=== PATIENT | female | born 1965 | race Caucasian/White ===

== ENCOUNTER 2016-11-27 00:18 | Emergency (ER) | payer MEDICARE, MEDICAID ==
[2016-11-27] MEDS ORDERED: PROMETHAZINE HCL 25 MG/ML VIAL IVP ONE ×2 (00:33→00:34)
[2016-11-27] MEDS ORDERED: 0.9 % SODIUM CHLORIDE 1,000 ML BAG IV ONE ×2 (00:33→00:34)
[2016-11-27] MEDS ORDERED: HYDROMORPHONE HCL 1 MG/ML CPJ IVP ONE ×2 (00:33→00:34)
--- NOTE | 2016-11-27 00:38 | Emergency Department Record ---
History of Present Illness - General Chief Complaint: Headache Migraine Stated Complaint: VOMITING Source: Patient Mode of Arrival: Ambulatory Limitations: No limitations - History of Present Illness Initial Comments: 51 yo female presents with an abrupt onset frontal headache with nausea and vomiting. She was at rest with the headache started. The pain was 8/10 at the onset. She has a history of migraines but expressed this was different. She reports a normal day prior to that. She has a history of COPD, smoker, cardiac disease with 2 prior cardiac surgeries on Coumadin and Digoxin. No chest pain or shortness of breath. MD Complaint: Headache -: Hour(s) Onset Description: Sudden Location: Frontal Severity scale (1-10): 8 Quality: Sharp Consistency: Constant Improves With: Nothing Worsens With: None Associated Symptoms: Nausea, Vomiting Treatments Prior to Arrival: Prescription analgesic - Related Data Home Medications Medication Instructions Recorded Confirmed Last Taken Hydromorphone HCl [Dilaudid] 8 mg PO Q4H PRN 03/14/14 11/27/16 Unknown Ipratropium [place] 0.02 03/14/14 03/14/14 Unknown Levalbuterol HCl (1.25MG/3Ml) 1.25 mg IH 03/14/14 03/14/14 Unknown [Xopenex] Metoprolol 50mg 03/14/14 03/14/14 Unknown Rosuvastatin Calcium [Crestor] 10 mg PO DAILY 03/14/14 11/27/16 Unknown Vasotec 0.25 mg PO 03/14/14 03/14/14 Unknown Digoxin [Digox] 125 mcg PO DAILY 11/27/16 11/27/16 Unknown Metoprolol Succinate [Toprol Xl] 50 mg PO DAILY 11/27/16 11/27/16 Unknown Quetiapine Fumarate [Seroquel] 200 mg PO DAILY 11/27/16 11/27/16 Unknown Sitagliptin Phosphate [Januvia] 100 mg PO DAILY 11/27/16 11/27/16 Unknown Warfarin Sodium [Coumadin] 7 mg PO DAILY 11/27/16 11/27/16 Unknown Allergies Allergy/AdvReac Type Severity Reaction Status Date / Time albuterol sulfate Allergy SWELLING Verified 03/14/14 20:31 [From DuoNeb] OF THE FACE ipratropium bromide Allergy SWELLING Verified 03/14/14 20:31 [From DuoNeb] OF THE FACE trazodone Allergy SWELLING Verified 03/14/14 20:31 OF THE FACE Review of Systems Constitutional: Denies: Chills, Fever, Malaise, Weakness Eyes: Reports: Photophobia. Denies: Eye discharge, Eye pain, Vision change ENT: Denies: Congestion, Throat pain Respiratory: Denies: Cough, Hemoptysis, Stridor, Wheezes Cardiovascular: Denies: Chest pain, Palpitations, Syncope Endocrine: Denies: Fatigue Gastrointestinal: Reports: Nausea, Vomiting. Denies: Abdominal pain Genitourinary: Denies: Dysuria, Urgency Musculoskeletal: Denies: Arthralgia, Back pain, Joint swelling, Myalgia, Neck pain Skin: Denies: Bruising, Change in color, Pruritus Neurological: Reports: Headache, Vertigo. Denies: Abnormal gait, Confusion, Numbness, Paresthesias, Tingling, Tremors, Weakness Psychiatric: Denies: Anxiety Hematological/Lymphatic: Denies: Blood Clots, Easy bleeding, Easy bruising, Swollen glands Past Medical History - SOCIAL HISTORY Smoking Status: Current every day smoker - RESPIRATORY Hx COPD: Yes - CARDIOVASCULAR Hx Cardiac Cath: Yes Hx CHF: Yes Hx Irregular Heartbeat: Yes (a fib) - NEURO Hx Neuro Disorders: No Hx CVA: Yes (x2) - GI Hx GI Disorders: Yes Hx Hepatitis/Jaundice: Yes (hep c) - Hx Genitourinary Disorders: No Hx Kidney Stones: Yes - ENDOCRINE Hx Endocrine Disorders: No Hx Diabetes: Yes - MUSCULOSKELETAL Hx Musculoskeletal Disorders: No - PSYCH Hx Psych Problems: No - HEMATOLOGY/ONCOLOGY Hx Hematology/Oncology Disorders: No Family Medical History Hx Heart Disease: Mother Physical Exam - General General Appearance: Alert, Oriented x3, Cooperative, Anxious Limitations: No limitations, Other (Clear thoughts and clear speech) - Head Head exam: Normal inspection - Eye Eye exam: Normal appearance, PERRL. negative: Conjunctival injection, Periorbital swelling - ENT ENT exam: Normal exam, Mucous membranes moist, Normal external ear exam, Normal orophraynx Ear exam: Normal external inspection. negative: External canal tenderness Nasal Exam: Normal inspection. negative: Discharge, Sinus tenderness Mouth exam: Normal external inspection, Tongue normal Teeth exam: Normal inspection. negative: Dental caries Throat exam: Normal inspection. negative: Tonsillar erythema, Tonsillar exudate - Neck Neck exam: Normal inspection, Full ROM. negative: Lymphadenopathy, Tenderness, Thyromegaly - Respiratory Respiratory exam: Decreased breath sounds, Wheezes (few scattered expiratory wheezes), Other (She is non labored). negative: Normal lung sounds bilaterally , Accessory muscle use, Prolonged expiratory, Respiratory distress - Cardiovascular Cardiovascular Exam: Normal rhythm, Normal heart sounds, Systolic murmur ( mechanical valve sounds heard), Tachycardia Peripheral Pulses: 2+: Radial (R), Radial (L) - GI/Abdominal GI/Abdominal exam: Soft. negative: Tenderness - Rectal Rectal exam: Deferred - exam: Deferred - Extremities Extremities exam: Normal inspection, Full ROM, Normal capillary refill. negative: Tenderness - Back Back exam: Reports: Normal inspection, Full ROM. Denies: CVA tenderness (R), CVA tenderness (L), Muscle spasm, Rash noted, Tenderness - Neurological Neurological exam: Alert, CN II-XII intact, Normal gait, Oriented X3. negative : Altered, Motor sensory deficit - Psychiatric Psychiatric exam: Anxious - Skin Skin exam: Dry, Intact, Normal color, Warm Course - Reevaluation(s) Reevaluation #1: The patient was seen and examined. She presents with an abrupt onset of headache with nausea. She is on Coumadin. I explained my concern about a sudden onset LOVE with nausea. I explained she will be treated for pain and nausea but with those symptoms I will get a stat HCT and recommend transfer to a larger acute care hospital where services such as neurology or neurosurgery are present. She declined the transfer. I explained possible causes such as bleeding can cause her symptoms. I explained prior to medications that if she chose to go home it would be against medical advice. She understood my concerns and agreed to sign out AMA if that is what she chooses. EMR reviewed. 11/27/16 00:31 11/27/16 00:46 Reevaluation #2: EKG sinus tachycardia at 113 with 2 PVC's, intervals normal with QT 438, axis normal, ST non specific T flattening, no ischemic changes. Prior EKG 03/14/14 No significant changes 11/27/16 01:00 Reevaluation #3: The CBC was reviewed No acute changes INR is 3.14 The headache is gone She still has some nausea. 11/27/16 01:17 Reevaluation #4: CT of the head is negative for acute changes. The patient is feeling much better. I again discussed my recommendation for further observation and consultation for a sudden onset severe headache and nausea. I recommended transfer at this time to a hospital with the services she may need with her medical history. She still declines. She is aware again of my concerns about bleeding or other life threatening processes. She states she will not be transferred and will go home AMA as discussed earlier. She is clear of thought, speak and demonstrates understanding and the ability to make decisions. She takes Dilaudid 4-[address] daily [address] but I informed her its our policy to advise patients to not drive. She is alert, clear speech, she was informed of her vitals with still increased HR. She states she is back to baseline. She does not appear impaired in any way at this time. 11/27/16 01:36 11/27/16 01:51 Reevaluation #5: The patient is dressed, alert, stable gate. My judgment is that she is not impaired and at baseline but I again informed her again of our policy and that local law enforcement would be notified if she drove. She understands and called her and established a ride home and agrees to not drive. 11/27/16 02:03 11/27/16 02:06 11/27/16 02:15 Medical Decision Making - Lab Data Result diagrams: 11/27/16 00:35 11/27/16 00:35 Disposition Disposition: Discharge Clinical Impression: Left against medical advice, Severe headache Disposition: Against Medical Advice Condition: (3) Guarded Instructions: Acute Headache (ED), Against Medical Advice (ED) Additional Instructions: You are signing out AMA Return at anytime for evaluation Call your doctor tomorrow for followup Forms: Patient Portal Access Time of Disposition: 02:03
[2016-11-27 00:45] LABS: HEMATOCRIT 51.6 % (35.0-47.0); HEMOGLOBIN 17.1 gm/dl (11.6-16.0); MEAN CELL VOLUME 85.9 fl (81-97); MEAN CORPUSCULAR HGB CONC 33.1 g/dl (32-36); MEAN PLATELET VOLUME 10.8 fl (7.4-10.4); PLATELET COUNT 223 K/uL (130-400); RED BLOOD COUNT 6.01 M/uL (3.80-5.40); RED CELL DISTRIBUTION WIDTH 14.8 % (11.5-14.5); WHITE BLOOD COUNT W/O DIFF 10.4 K/uL (4.2-12.2)
[2016-11-27 00:55] LABS: MEAN CORPUSCULAR HEMOGLOBIN 28.4 pg (27-33)
[2016-11-27 01:08] LABS: INR 3.14; PARTIAL THROMBOPLASTIN TIME 40.5 SECONDS (24.5-39.1); PROTHROMBIN TIME (PATIENT) 35.5 SECONDS (9.5-12.1)
[2016-11-27 01:13] LABS: ALB/GLOB RATIO 1.2 (1.1-1.8); ALBUMIN 4.6 gm/dL (3.5-5.0); ALKALINE PHOSPHATASE 113 U/L (38-126); ALT/SGPT 39 U/L (9-52); ANION GAP 14.1 (7-16); AST/SGOT 29 U/L (14-36); BILIRUBIN,TOTAL 0.73 mg/dL (0.2-1.3); BLOOD UREA NITROGEN 17 mg/dL (7-17); CARBON DIOXIDE 27.9 mmol/L (22-30); CREATININE 0.7 mg/dL (0.52-1.04); EST GLOMERULAR FILTRATION RATE > 60 ml/min; GLUCOSE,RANDOM 174 mg/dL (70-110); TOTAL PROTEIN 8.4 gm/dL (6.3-8.2)
--- NOTE | 2016-12-02 16:00 | CT SCAN REPORT ---
EXAM: CT SCAN HEAD WO CONTRAST HISTORY: FRONTAL HEADACHE WITH VOMITING FOR THE PAST FIVE HOURS. RIGHT-HAND DOMINANT. TECHNIQUE: Axial CT scan of the head performed without IV contrast. Preliminary report provided by [facility]. COMPARISON: Head CT dated 06/04/12. FINDINGS: No definite acute intracranial hemorrhage identified. No focal mass effect or midline shift apparent. No definite acute infarct or intracranial mass lesion is seen. Mild to moderate membrane thickening in the ethmoids and mild membrane thickening in the maxillary sinuses. Deviation of the nasal septum to the right. IMPRESSION: 1. NO DEFINITE ACUTE INTRACRANIAL HEMORRHAGE OR FOCAL MASS EFFECT EVIDENT. 2. SOME MEMBRANE THICKENING IN THE ETHMOID AND MAXILLARY SINUSES. JOB NUMBER: [id number] MTDD
== END 2016-11-27 02:22 | disposition left against medical advice (07) ==
LOC: ER 00:18
DX: R51 Headache (principal); R11.2 Nausea with vomiting, unspecified; J44.9 Chronic obstructive pulmonary disease, unspecified; I50.9 Heart failure, unspecified; I48.91 Unspecified atrial fibrillation; Z79.01 Long term (current) use of anticoagulants; F17.210 Nicotine dependence, cigarettes, uncomplicated
CPT/HCPCS: 99284 ×2; 96376; 96374; 96375; 85730; 85610; 80053; 80162; 85027; 70450; 93005; 93010; J1170; J2550; J7030